=== PATIENT | female | born 1980 | race Caucasian/White ===

== ENCOUNTER → 2020-11-14 09:03 | Outpatient (BNVA) | payer OTHER, SELFPAY | PROVIDERS: Visit Provider Registered Nurse | DX: J06.9 Acute upper respiratory infection, unspecified (principal); Z20.822 Contact with and (suspected) exposure to COVID-19 | CPT/HCPCS: 87635 ==

== ENCOUNTER → 2020-11-18 13:24 | Outpatient (BNVA) | payer OTHER, SELFPAY | PROVIDERS: Visit Provider Registered Nurse | DX: J06.9 Acute upper respiratory infection, unspecified (principal); R69 Illness, unspecified; Z20.822 Contact with and (suspected) exposure to COVID-19 | CPT/HCPCS: 80053; 81000; 85025; 86141; 87400; 87635 ==

== ENCOUNTER → 2020-11-25 10:02 | Outpatient (BNVA) | payer SELFPAY | PROVIDERS: PCP Registered Nurse; Visit Provider Registered Nurse | DX: B34.9 Viral infection, unspecified (principal) | CPT/HCPCS: 86618; 86666; 86757 ==

== ENCOUNTER 2021-02-04 13:02 | Emergency (ER) | payer SELFPAY ==
[2021-02-04 13:41] VITALS: BP 94/63; PULSE 75; RESP 16; TEMP 37; O2SAT 99; BMI 19.2
[2021-02-04 14:07] VITALS: O2SAT 99
[2021-02-04 14:08] LABS: Basophils % 0.4 %; Hematocrit 44.2 % (37.0-47.0); Hemoglobin 15.2 g/dL (11.5-15.3); Lymphocytes # 0.7 10^3/uL (0.8-4.8); Lymphocytes % 31.2 %; Mean Corpuscular HGB Conc 34.4 g/dL (30.0-36.0); Mean Corpuscular Hemoglobin 30.3 pg (28.0-34.0); Mean Platelet Volume 11.2 fL (7.4-10.4); Monocytes # 0.2 10^3/uL (0.2-0.9); Monocytes % 8.9 %; Neutrophils # 1.41 10^3/uL (1.8-7.7); Neutrophils % 59.5 %; Nucleated Red Blood Cells % 0 %; Platelet Count 115 10^3/cmm (130-400); Red Blood Count 5.02 10^6/uL (4.1-5.3); Red Cell Distribution Width 11.6 % (12.1-15.1); White Blood Count 2.4 10^3/uL (4.0-10.0)
[2021-02-04 14:27] LABS: HCG, Serum Qual Negative (Negative)
[2021-02-04 14:41] LABS: Alanine Aminotransferase 38 U/L (0-33); Albumin Level 3.8 g/dL (3.5-5.2); Alkaline Phosphatase 59 IU/L (35-105); Anion Gap 15.6 (5-19); Aspartate Amino Transferase 29 U/L (0-32); Blood Urea Nitrogen 9 mg/dL (6-20); Calcium 8.3 mg/dL (8.5-10.5); Carbon Dioxide 26 mmol/L (22-29); Chloride 99 mmol/L (98-107); Globulin 2.7 g/dL (1.3-4.6); Glomerular Filtration Rate 93.2 mL/min (90-130); Glucose 72 mg/dL (65-115); Osmolality Calculated 279 mOsm/kg (285-295); Potassium 4.6 mmol/L (3.5-5.1); Sodium 136 mmol/L (136-145); Total Bilirubin 0.3 mg/dL (0.15-1.2); Total Protein 6.5 g/dL (6.6-8.7)
[2021-02-04 14:45] LABS: Lactic Sepsis W/Reflex 0.8 mmol/L (0.5-2.2)
[2021-02-04] MEDS: sodium chloride 0.9% 1,000 ML 999 ML IV (17:28)
[2021-02-04] MEDS: ondansetron 2 mg/ML SDV 2 mL 4 MG IVP (17:28)
--- NOTE | 2021-02-04 17:36 | W.ED.COVID ---
HPI - COVID General: Chief Complaint: COVID symptoms Stated Complaint: COVID+ VOMITING 6+ DAYS Time Seen by Provider: 02/04/21 17:10 Triage information: Has fever, cough or shortness of breath. Exposure to COVID + person last 14 days History of Present Illness: HPI Narrative: Patient is a 40-year-old female comes to the ED with nausea vomiting. Patient tested positive for COVID-19 at [facility] 2 days ago. Her symptoms started approximately 7 days ago. She had a cough, fever and nasal drainage and congestion. Her cough has been improving over the past couple days and is almost completely resolved. For the past 2-3 days she started developing abdominal pain located in the center of her abdomen along with more intense nausea and vomiting. She says she has not been able to keep any food or fluids down for the past 48 hours. COVID 19 common symptoms: positive fever(s), non-productive cough, nasal congestion, nausea, vomiting and diarrhea; negative chills, productive cough, dyspnea, fatigue, headache(s) or throat pain COVID 19 other sytmptoms: negative chest pain COVID Results: SARS-CoV-2 RNA (RT-PCR) Not detected (NOT DETECTED) 11/18/20 11:48 11/18/20 Review of Systems Const: Reports: fever(s); Denies: chills or fatigue Eyes: Denies: change in vision or eye discomfort ENMT: Reports: nasal discharge and nasal congestion; Denies: throat pain or odynophagia Card: Denies: chest pain, palpitations, edema, swelling of feet/ankles, dyspnea on exertion or orthopnea Resp: Reports: non-productive cough; Denies: dyspnea or productive cough GI: Reports: abdominal pain, nausea, vomiting and diarrhea; Denies: constipation or hematochezia : Denies: flank pain, dysuria or hematuria Musc: Denies: neck pain, back pain or extremity swelling Skin/Breast: Denies: rash or new lesions Neuro: Denies: headache(s), numbness in extremities or weakness in extremities Physical Exam Const: COMMON NORMALS: no acute distress, patient oriented x3 and alert GENERAL APPEARANCE: cooperative and comfortable HENMT: COMMON NORMALS: normocephalic HEAD & SCALP: normocephalic MOUTH: moist mucous membranes abnormal Details: parched THROAT: posterior oropharynx normal and uvula midline Eye: COMMON NORMALS: Equal, round and reactive pupils present PUPIL: Yes Equal, round and reactive pupils present Neck/C-Spine: COMMON NORMALS: supple GENERAL: Yes normal visual inspection Resp: COMMON NORMALS: normal respiratory effort, No retractions, No use of accessory muscles and clear to auscultation bilaterally AUSCULTATION: clear to auscultation bilaterally Cardio: COMMON NORMALS: regular rate, regular rhythm, S1 normal heart sound present, S2 normal heart sound present, No gallops present (Cardio), No clicks present (Cardio), No murmurs present (Cardio) and Peripheral pulses 2+ throughout RATE: regular rate RHYTHM: regular rhythm HEART SOUNDS: S1 normal heart sound present and S2 normal heart sound present PERIPHERAL PULSES: Peripheral pulses 2+ throughout GI: COMMON NORMALS: Normal to inspection, nondistended, normoactive bowel sounds present, Soft to palpation and no masses PALPATION: Yes Soft to palpation and Yes Tenderness to palpation present (GI) Details: other (Periumbilical and epigastric tenderness) : COMMON NORMALS: Yes no CVA tenderness BLADDER/KIDNEY EXAM: Yes no CVA tenderness Back/Pelvis: COMMON NORMALS: no CVA tenderness Neuro: COMMON NORMALS: patient oriented x3 and moves all extremities SENSORIUM/ORIENTATION: Yes alert Skin: GENERAL SKIN EXAM: dry skin Course Reevaluation(s): Reevaluation #1: After patient received IV fluids, Zofran and Reglan her nausea was controlled. She was able to drink some p.o. fluids and keep them down. Vital Signs: Vital signs: Vital Signs Temperature 98.6 F 02/04/21 13:41 Pulse Rate 76 02/04/21 21:45 Respiratory Rate 24 H 02/04/21 21:45 Blood Pressure 124/84 02/04/21 21:45 Pulse Oximetry 99 02/04/21 21:45 MDM - COVID MDM Narrative: Medical decision making narrative: Patient is a 40-year-old female comes to the ED with nausea, vomiting and some abdominal pain. Patient just tested positive for COVID-19 2 days ago at [facility]. She has been having symptoms for about a week. For the past 2 days she has been able to keep any food or fluids down. She states that her cough has pretty much resolved and she denies any shortness of breath. Exam shows a nontoxic-appearing patient in no acute distress or pain. Vitals are stable. Lungs are clear to consultation bilaterally patient does have some dry mucous membranes and some periumbilical abdominal tenderness. CBC, CMP and lactic were unremarkable. hCG negative. Chest x-ray showed some bilateral mild groundglass opacities. CT of abdomen pelvis showed no acute intra-abdominal finding. Some viral pneumonia signs seen in the base of the lungs. Patient was given IV fluids, Zofran, Reglan and her nausea was controlled. She was able to take p.o. fluids and keep them down. Patient was given IV Solu-Medrol while here in the ED. Patient diagnosed with COVID-19 and she was stable for discharge home. She was sent home with prescription for prednisone, azithromycin and Reglan. She was told to follow-up with her PCP in 5 to 7 days for reevaluation. Return to ED precautions given. Patient understood and agree with plan. Lab Data: Attestation: I reviewed the patient's lab results. Labs: Lab Results 02/04/21 02/04/21 02/04/21 13:43 13:43 13:43 WBC 2.4 10^3/uL L 10^ 3/uL (4.0-10.0) RBC 5.02 10^6/uL 10^6 /uL (4.1-5.3) Hgb 15.2 g/dL g/dL (11.5-15.3) Hct 44.2 % % (37.0-47.0) MCV 88.0 fl fl (81-99) MCH 30.3 pg pg (28.0-34.0) MCHC 34.4 g/dL g/dL (30.0-36.0) RDW 11.6 % L % (12.1-15.1) Plt Count 115 10^3/cmm L 10 ^3/cmm (130-400) MPV 11.2 fL H fL (7.4-10.4) Neut % (Auto) 59.5 % % Lymph % (Auto) 31.2 % % Walsh % (Auto) 8.9 % % Eos % (Auto) 0.0 % % Baso % (Auto) 0.4 % % Neut # (Auto) 1.41 10^3/uL L 10 ^3/uL (1.8-7.7) Lymph # (Auto) 0.7 10^3/uL L 10^ 3/uL (0.8-4.8) Walsh # (Auto) 0.2 10^3/uL 10^3/ uL (0.2-0.9) Eos # (Auto) 0.0 10^3/uL 10^3/ uL (0.0-0.8) Baso # (Auto) 0.0 10^3/uL 10^3/ uL (0.0-0.1) Nucleated RBC % (a uto) 0 % % Nucleated RBCs # 0.0 /100WBC /100W BC Sodium 136 mmol/L mmol/L (136-145) Potassium 4.6 mmol/L mmol/L (3.5-5.1) Chloride 99 mmol/L mmol/L (98-107) Carbon Dioxide 26 mmol/L mmol/L (22-29) Anion Gap 15.6 (5-19) BUN 9 mg/dL mg/dL (6-20) Creatinine 0.7 mg/dL mg/dL (0.5-0.9) GFR Calculation 93.2 mL/min mL/mi n (90-130) Glucose 72 mg/dL mg/dL (65-115) Calculated Osmolal ity 279 mOsm/kg L mOs m/kg (285-295) Lactic Acid Calcium 8.3 mg/dL L mg/dL (8.5-10.5) Total Bilirubin 0.3 mg/dL mg/dL (0.15-1.2) AST 29 U/L U/L (0-32) ALT 38 U/L H U/L (0-33) Alkaline Phosphata se 59 IU/L IU/L (35-105) Total Protein 6.5 g/dL L g/dL (6.6-8.7) Albumin 3.8 g/dL g/dL (3.5-5.2) Globulin 2.7 g/dL g/dL (1.3-4.6) HCG, Qual Negative (Negative) 02/04/21 13:43 WBC RBC Hgb Hct MCV MCH MCHC RDW Plt Count MPV Neut % (Auto) Lymph % (Auto) Walsh % (Auto) Eos % (Auto) Baso % (Auto) Neut # (Auto) Lymph # (Auto) Walsh # (Auto) Eos # (Auto) Baso # (Auto) Nucleated RBC % (a uto) Nucleated RBCs # Sodium Potassium Chloride Carbon Dioxide Anion Gap BUN Creatinine GFR Calculation Glucose Calculated Osmolal ity Lactic Acid 0.8 mmol/L mmol/L (0.5-2.2) Calcium Total Bilirubin AST ALT Alkaline Phosphata se Total Protein Albumin Globulin HCG, Qual Imaging Data: CT Abd/Pel: Attestation: I personally reviewed and interpreted this imaging study as follows: Radiologist's impression: [facility] [address] [place] [address]. [place] [address] CT Scan Report Signed Patient: Cecily Smith Unit #: [id number] : 1980 Age/Sex: 40 / F ADM Date: 02/04/21 Loc: ER Room/Bed: Attending Dr: Ordering Provider/Ordering MD: Jake Mcghee Date of Service: 02/04/21 Procedure(s): CT abdomen pelvis w con* [id number] Accession Number(s): [id number] Report Number: [id number] PROCEDURE INFORMATION: Exam: CT Abdomen And Pelvis With Contrast Exam date and time: 02/04/2021 5:58 PM Age: 40 years old Clinical indication: Nausea and vomiting and other: Diarrhea; Abdominal pain; Additional info: Abdominal pain-periumbilical, n/v/d TECHNIQUE: Imaging protocol: Computed tomography of the abdomen and pelvis with contrast. Radiation optimization: All CT scans at this facility use at least one of these dose optimization techniques: automated exposure control; mA and/or kV adjustment per patient size (includes targeted exams where dose is matched to clinical indication); or iterative reconstruction. Contrast material: OMNI 300; Contrast volume: 75 ml; Contrast route: INTRAVENOUS (IV); COMPARISON: CR XR chest 1V portable [id number] 02/04/2021 6:06 PM RADIATION DOSE METRICS: Total DLP (mGy-cm): 788.39 FINDINGS: Lungs: Bilateral peripheral ground-glass opacities with crazy paving, well-demarcated from uninvolved lung. No pleural effusions. Liver: Normal. No mass. Gallbladder and bile ducts: Normal. No calcified stones. No ductal dilation. Pancreas: Normal. No ductal dilation. Spleen: Normal. No splenomegaly. Adrenal glands: Normal. No mass. Kidneys and ureters: No hydroureteronephrosis or visualized urinary tract calculi. The kidneys enhance normally. There is a 5 mm right renal hypodensity which is too small to characterize but statistically likely represents a cyst. Stomach and bowel: Scattered diverticula of the left colon. No evidence of active diverticulitis. Appendix: No evidence of appendicitis. Intraperitoneal space: Small hypoattenuating free pelvic fluid is nonspecific but may be physiologic. No organized fluid collection. No free air. Vasculature: Unremarkable. No abdominal aortic aneurysm. Lymph nodes: Unremarkable. No enlarged lymph nodes. Urinary bladder: Bladder partially filled. No stones. Reproductive: Unremarkable as visualized. Bones/joints: No acute or aggressive osseous lesion. Soft tissues: Unremarkable. CT/CT abdomen pelvis w con* [id number] IMPRESSION: 1. Bibasilar pulmonary ground-glass opacities with crazy paving. Commonly reported imaging features of COVID-19 pneumonia are present. Other processes such as influenza pneumonia and organizing pneumonia, as can be seen with drug toxicity and connective tissue disease, can cause a similar imaging pattern. (Reference: Steve) 2. Small free pelvic fluid is nonspecific but presumably physiologic. No organized fluid collection. 3. Diverticulosis without evidence of active diverticulitis. COMMENTS: Consistent with the [place] [employer]'s Incidental Findings Committee white paper (J Am Elaina Radiol 2018): Any incidental renal lesion less than 1 cm or classified as too small to characterize, or any incidental cystic renal lesion characterized as simple-appearing, is likely benign. No follow-up imaging is recommended for these lesions per consensus recommendations based on imaging criteria. REFERENCES: Steve Lozada et al., Radiological Society of [place] Expert Consensus Statement on Reporting Chest CT Findings Related to COVID-19. Endorsed by the Society of Thoracic Radiology, the [place] [employer], and RSNA. Published July 18, 2019. Radiation Dose CTDIVOL = (mGy): DLP = 788.39 (mGy-cm) Dictated By: Kris Rubalcava MD Signed By: Kris Rubalcava MD Signed Date/Time: 02/04/211930 DD/ 57 CXR: Attestation: I personally reviewed and interpreted this imaging study as follows: Radiologist's impression: [facility] [address] [address] XRay Report Signed Patient: Cecily Smith Unit #: [id number] : 1980 Age/Sex: 40 / F ADM Date: 02/04/21 Loc: ER Room/Bed: Attending Dr: Ordering Provider/Ordering MD: Jake Mcghee Date of Service: 02/04/21 Procedure(s): XR chest 1V portable [id number] Accession Number(s): [id number] Report Number: [id number] PROCEDURE INFORMATION: Exam: XR Chest Exam date and time: 02/04/2021 5:58 PM Age: 40 years old Clinical indication: Cough and fever and shortness of breath; Additional info: Covid-19 positive, cough, SOB, and fever TECHNIQUE: Imaging protocol: XR of the chest. Views: 1 view. COMPARISON: No relevant prior studies available. FINDINGS: Lungs: The lungs are symmetrically expanded. Subtle bibasilar ground-glass opacities. No lobar consolidation. Pleural spaces: Unremarkable. No pleural effusion. No pneumothorax. Heart/Mediastinum: Unremarkable. No cardiomegaly. Bones/joints: Unremarkable. XR/XR chest 1V portable [id number] IMPRESSION: Subtle bibasilar ground-glass opacities consistent with mild infectious/inflammatory airways process and presumably related to COVID-19 pneumonia given history. No lobar consolidation. Radiation Dose CTDIVOL = (mGy): DLP = (mGy-cm) Dictated By: Kris Rubalcava MD Signed By: Kris Rubalcava MD Signed Date/Time: 02/04/211931 DD/ 57 COVID Results: SARS-CoV-2 RNA (RT-PCR) Not detected (NOT DETECTED) 11/18/20 11:48 11/18/20 Discharge Plan Discharge Patient Disposition: Home Clinical Impression: COVID-19 Condition: Stable Prescriptions: New Reglan 10 mg tablet 10 mg PO Q6H PRN (Reason: nausea and vomiting) Qty: 20 RF: 0 azithromycin 250 mg tablet See Rx Instructions .ROUTE .COMPLEX Qty: 6 RF: 0 prednisone 20 mg tablet 20 mg PO BID 7 Days Qty: 14 RF: 0 No Action doxycycline hyclate 100 mg tablet 100 mg PO BID 10 Days Qty: 20 RF: 0 Discharge Orders: Discharge ED (Routine); Ordered 02/04/21 Ordered By: Jake Mcghee Referrals: Adelaida Santos FNP [Primary Care Provider] - Discharge Diet: Regular Discharge Activity: Increase activity as tolerated Patient Instructions: Viral Syndrome (ED) Activity Restrictions/Additional Instructions: Follow-up with medical provider as directed in 5 to 7 days for reevaluation. Take medications as prescribed. Make sure to drink plenty fluids and stay hydrated. Take [id number] vitamin C and zinc as well help immune system. return to the ER or your medical provider if condition worsens. Please read and understand discharge instructions. Thank you for choosing [facility] for your healthcare needs today. Please realize this is an emergency room and that we are providing you with a medical screening exam and this may not be complete and all inclusive of all the testing and or work up that you may need to determine your ailment or severity of your illness. It is very important that you follow up as instructed or that you return to the Emergency Department should you have concerns or if your condition changes or worsens in any way. Coding Level of Care Code ED Tonnage Compilation Clerk for Rainer Fwanival Exam Comprehensive
--- NOTE | 2021-02-04 17:58 | CTR_ITS ---
PROCEDURE INFORMATION: Exam: CT Abdomen And Pelvis With Contrast Exam date and time: 02/04/2021 5:58 PM Age: 40 years old Clinical indication: Nausea and vomiting and other: Diarrhea; Abdominal pain; Additional info: Abdominal pain-periumbilical, n/v/d TECHNIQUE: Imaging protocol: Computed tomography of the abdomen and pelvis with contrast. Radiation optimization: All CT scans at this facility use at least one of these dose optimization techniques: automated exposure control; mA and/or kV adjustment per patient size (includes targeted exams where dose is matched to clinical indication); or iterative reconstruction. Contrast material: OMNI 300; Contrast volume: 75 ml; Contrast route: INTRAVENOUS (IV); COMPARISON: CR XR chest 1V portable [id number] 02/04/2021 6:06 PM RADIATION DOSE METRICS: Total DLP (mGy-cm): 788.39 FINDINGS: Lungs: Bilateral peripheral ground-glass opacities with crazy paving, well-demarcated from uninvolved lung. No pleural effusions. Liver: Normal. No mass. Gallbladder and bile ducts: Normal. No calcified stones. No ductal dilation. Pancreas: Normal. No ductal dilation. Spleen: Normal. No splenomegaly. Adrenal glands: Normal. No mass. Kidneys and ureters: No hydroureteronephrosis or visualized urinary tract calculi. The kidneys enhance normally. There is a 5 mm right renal hypodensity which is too small to characterize but statistically likely represents a cyst. Stomach and bowel: Scattered diverticula of the left colon. No evidence of active diverticulitis. Appendix: No evidence of appendicitis. Intraperitoneal space: Small hypoattenuating free pelvic fluid is nonspecific but may be physiologic. No organized fluid collection. No free air. Vasculature: Unremarkable. No abdominal aortic aneurysm. Lymph nodes: Unremarkable. No enlarged lymph nodes. Urinary bladder: Bladder partially filled. No stones. Reproductive: Unremarkable as visualized. Bones/joints: No acute or aggressive osseous lesion. Soft tissues: Unremarkable. CT/CT abdomen pelvis w con* [id number] IMPRESSION: 1. Bibasilar pulmonary ground-glass opacities with crazy paving. Commonly reported imaging features of COVID-19 pneumonia are present. Other processes such as influenza pneumonia and organizing pneumonia, as can be seen with drug toxicity and connective tissue disease, can cause a similar imaging pattern. (Reference: Steve) 2. Small free pelvic fluid is nonspecific but presumably physiologic. No organized fluid collection. 3. Diverticulosis without evidence of active diverticulitis. COMMENTS: Consistent with the [place] [employer]'s Incidental Findings Committee white paper (J Am Elaina Radiol 2018): Any incidental renal lesion less than 1 cm or classified as too small to characterize, or any incidental cystic renal lesion characterized as simple-appearing, is likely benign. No follow-up imaging is recommended for these lesions per consensus recommendations based on imaging criteria. REFERENCES: Steve Lozada et al., Radiological Society of [place] Expert Consensus Statement on Reporting Chest CT Findings Related to COVID-19. Endorsed by the Society of Thoracic Radiology, the [place] [employer], and RSNA. Published July 18, 2019. Radiation Dose CTDIVOL = (mGy): DLP = 788.39 (mGy-cm)
--- NOTE | 2021-02-04 17:58 | XRR_ITS ---
PROCEDURE INFORMATION: Exam: XR Chest Exam date and time: 02/04/2021 5:58 PM Age: 40 years old Clinical indication: Cough and fever and shortness of breath; Additional info: Covid-19 positive, cough, SOB, and fever TECHNIQUE: Imaging protocol: XR of the chest. Views: 1 view. COMPARISON: No relevant prior studies available. FINDINGS: Lungs: The lungs are symmetrically expanded. Subtle bibasilar ground-glass opacities. No lobar consolidation. Pleural spaces: Unremarkable. No pleural effusion. No pneumothorax. Heart/Mediastinum: Unremarkable. No cardiomegaly. Bones/joints: Unremarkable. XR/XR chest 1V portable [id number] IMPRESSION: Subtle bibasilar ground-glass opacities consistent with mild infectious/inflammatory airways process and presumably related to COVID-19 pneumonia given history. No lobar consolidation. Radiation Dose CTDIVOL = (mGy): DLP = (mGy-cm)
[2021-02-04] MEDS: iohexol 300 mg/mL 100 mL Btl IV (18:14)
[2021-02-04] MEDS: metoclopramide 5 mg/mL SDV 2 mL 10 MG IVP (20:15)
[2021-02-04 20:20] VITALS: RESP 20
[2021-02-04] MEDS: morphine 4 mg/mL SDV 1 mL 2 MG IVP (20:20)
[2021-02-04 21:45] VITALS: BP 124/84; PULSE 76; RESP 24; O2SAT 99
== END 2021-02-04 21:40 | disposition home or self-care (01) ==
PROVIDERS: Physician Assistant; Emergency Provider Physician Assistant; PCP Registered Nurse
DX: U07.1 COVID-19 (principal)
CPT/HCPCS: 71045; 74177; 80053; 83605; 84703; 85025; 96361; 96374; 96375; 99283; J2270; J2405; J2765; J2930; J7030; Q9967

== ENCOUNTER → 2022-03-12 11:39 | Outpatient (BNVA) | payer SELFPAY | PROVIDERS: PCP Registered Nurse; Visit Provider Registered Nurse | DX: R00.0 Tachycardia, unspecified (principal); R55 Syncope and collapse | CPT/HCPCS: 80053; 82306; 82607; 83036; 84443; 85025 ==

== ENCOUNTER → 2022-03-22 10:02 | Outpatient (BNVA) | payer SELFPAY | PROVIDERS: PCP Registered Nurse; Visit Provider Registered Nurse | DX: J11.1 Influenza due to unidentified influenza virus with other respiratory manifestations (principal); Z11.52 Encounter for screening for COVID-19; R68.89 Other general symptoms and signs | CPT/HCPCS: 87400; 87426 ==

== ENCOUNTER 2023-08-29 12:17 | Emergency (ER) | payer SELFPAY ==
[2023-08-29 12:22] VITALS: BP 131/75; PULSE 115; RESP 18; TEMP 36.9; O2SAT 100; BMI 17.6
--- NOTE | 2023-08-29 13:21 | W.ED.ABDPA2 ---
HPI - Abdominal Pain General: Chief Complaint: Abdominal Pain Stated Complaint: states she is C Diff + 5 days ago, weakness Time Seen by Provider: 08/29/23 13:15 Source: patient Mode of arrival: ambulatory Limitations: no limitations History of Present Illness: 42-year-old female states she has not felt well since roughly 10 days ago she been having nausea diarrhea generalized weakness she was seen at the ER on Tuesday was seen at [facility] again on Tuesday and was diagnosed with C. difficile. She was started on Flagyl and Phenergan but states she is continue to been nauseous with diarrhea and just feeling extremely weak she denies any fever she had abdominal cramping denies any severe pain. Associated Symptoms: Reports diarrhea, nausea and vomiting; Denies chills, dysuria and fever(s) Review of Systems Const: Reports: fatigue and malaise; Denies: fever(s), chills, body aches or change in appetite ENMT: Denies: throat pain or dental pain Card: Denies: chest pain Resp: Denies: dyspnea GI: Reports: abdominal pain, nausea, vomiting and diarrhea : Denies: dysuria Musc: Denies: neck pain or back pain Skin/Breast: Denies: rash Neuro: Denies: headache(s) PFSH ED PFSH: Family History Other No pertinent family history Social History Smoking and tobacco/nicotine status: current every day tobacco/nicotine user e-cigarettes E-Cigarette Details: vaporizer device Alcohol intake: never Substance/Drug Use: never Adopted: No Caregiver/support person: No Lives independently: No Household members: children service: Yes status: Medically Discharged/Retired branch: [employer] Current occupational status: employed Sexually active: Yes Do you think of yourself as: Straight/Heterosexual Current gender identity: Female Physical Exam Const: COMMON NORMALS: patient oriented x3 GENERAL APPEARANCE: ill appearing HENMT: COMMON NORMALS: normocephalic and atraumatic HEAD & SCALP: normocephalic and atraumatic Eye: COMMON NORMALS: conjunctivae normal CONJUNCTIVA: Yes conjunctivae normal Neck/C-Spine: COMMON NORMALS: full ROM and supple Chest: COMMONS NORMALS: normal inspection of the chest and normal palpation of entire chest wall Resp: COMMON NORMALS: normal respiratory effort, No retractions, No use of accessory muscles and clear to auscultation bilaterally AUSCULTATION: clear to auscultation bilaterally Cardio: COMMON NORMALS: regular rhythm and No murmurs present (Cardio) RATE: tachycardic RHYTHM: regular rhythm GI: COMMON NORMALS: Normal to inspection, nondistended, normoactive bowel sounds present, Soft to palpation, non-tender and no masses PALPATION: Yes Soft to palpation Extremity: COMMON NORMALS: normal to inspection and full ROM Neuro: COMMON NORMALS: patient oriented x3, moves all extremities and no focal motor deficits Psych: COMMON NORMALS: mental status grossly normal, Normal thought process present and cooperative THOUGHT PROCESS: Normal thought process present Skin: COMMON NORMALS: no rashes or lesions noted and no wounds GENERAL SKIN EXAM: no rashes or lesions noted Course Vital Signs: Vital signs: Vital Signs Temperature 98.5 F 08/29/23 12:22 Pulse Rate 115 H 08/29/23 12:22 Respiratory Rate 18 08/29/23 12:22 Blood Pressure 131/75 08/29/23 12:22 Pulse Oximetry 100 08/29/23 12:22 Oxygen Delivery Me thod Room Air 08/29/23 12:22 MDM - Abdominal Pain Medical Decision Making Patient presents here with abdominal cramping and diarrhea she is on Flagyl for C. difficile her blood work here is normal white count electrolytes normal she feels improved after IV fluids will refill her Phenergan she is to continue her Flagyl follow-up with her PCP return if worsening she understands agrees with plan abdominal exam is benign no signs of acute surgical abdomen Medical Records I reviewed the patient's medical records. Lab Data I reviewed the patient's lab results. 08/29/23 13:20 08/29/23 13:20 Labs/Radiology: Laboratory Results WBC 9.25 10^3/uL (3.29-11.43) 08/29/23 13:20 RBC 5.99 10^6/uL (3.85-5.65) H 08/29/23 13:20 Hgb 17.80 g/dL (11.27-16.99) H 08/29/23 13:20 Hct 52.9 % (36-47) H 08/29/23 13:20 MCV 88.3 fl (85-98) 08/29/23 13:20 MCH 29.7 pg (27-33) 08/29/23 13:20 MCHC 33.6 g/dL (30-55) 08/29/23 13:20 RDW 12.5 % (12.1-15.1) 08/29/23 13:20 Plt Count 298 10^3/cmm (157-399) 08/29/23 13:20 MPV 10.6 fL (7.4-10.4) H 08/29/23 13:20 Neut % (Auto) 84.6 % 08/29/23 13:20 Lymph % (Auto) 10.6 % 08/29/23 13:20 [place] % (Auto) 4.2 % 08/29/23 13:20 Eos % (Auto) 0.0 % 08/29/23 13:20 Baso % (Auto) 0.4 % 08/29/23 13:20 Neut # (Auto) 7.82 10^3/uL (1.8-7.7) H 08/29/23 13:20 Lymph # (Auto) 1.0 10^3/uL (0.8-4.8) 08/29/23 13:20 [place] # (Auto) 0.4 10^3/uL (0.2-0.9) 08/29/23 13:20 Eos # (Auto) 0.0 10^3/uL (0.0-0.8) 08/29/23 13:20 Baso # (Auto) 0.0 10^3/uL (0.0-0.1) 08/29/23 13:20 Nucleated RBC % (auto) 0 % 08/29/23 13:20 Nucleated RBCs # 0.0 /100WBC 08/29/23 13:20 Sodium 139 mmol/L (136-145) 08/29/23 13:20 Potassium 4.2 mmol/L (3.5-5.1) 08/29/23 13:20 Chloride 103 mmol/L (98-107) 08/29/23 13:20 Carbon Dioxide 24 mmol/L (22-29) 08/29/23 13:20 Anion Gap 16.2 (5-19) 08/29/23 13:20 BUN 6 mg/dL (6-20) 08/29/23 13:20 Creatinine 0.7 mg/dL (0.5-0.9) 08/29/23 13:20 GFR Calculation 92.2 mL/min (90-130) 08/29/23 13:20 Glucose 121 mg/dL (65-115) H 08/29/23 13:20 Calculated Osmolality 287 mOsm/kg (285-295) 08/29/23 13:20 Calcium 9.7 mg/dL (8.5-10.5) 08/29/23 13:20 Total Bilirubin 0.5 mg/dL (0.15-1.2) 08/29/23 13:20 AST 17 U/L (0-32) 08/29/23 13:20 ALT 11 U/L (0-33) 08/29/23 13:20 Alkaline Phosphatase 65 U/L (35-105) 08/29/23 13:20 Total Protein 8.2 g/dL (6.6-8.7) 08/29/23 13:20 Albumin 4.8 g/dL (3.5-5.2) 08/29/23 13:20 Globulin 3.4 g/dL (1.3-4.6) 08/29/23 13:20 C. difficile (PCR) Negative (Negative) 08/29/23 14:25 No radiology studies performed this visit Discharge Plan Discharge Patient Disposition: Home Clinical Impression: Diarrhea, Abdominal pain Condition: Stable Prescriptions: New promethazine 25 mg tablet 25 mg PO Q6H PRN (Reason: nausea and vomiting) Qty: 20 0RF No Action Flagyl 500 mg Tablet 500 mg PO TID promethazine 25 mg Tablet 25 mg PO Q6H PRN (Reason: Nausea And Vomiting) Adult Multivitamin Gummies 200 mcg Tablet,Chewable 2 tab PO DAILY Discharge Orders: Discharge ED (Routine); Ordered 08/29/23 Ordered By: Robyn Shelton Referrals: Adelaida Santos FNP [Primary Care Provider] - 1-3 days Discharge Diet: Advance as tolerated Discharge Activity: Resume usual activity Patient Instructions: Diarrhea - Adult, Abdominal Pain (ED) Coding Level of Care Code ED Conservation Educator for Rainer Meraz
[2023-08-29 13:26] LABS: Basophils % 0.4 %; Hematocrit 52.9 % (36-47); Lymphocytes % 10.6 %; Mean Corpuscular HGB Conc 33.6 g/dL (30-55); Mean Corpuscular Hemoglobin 29.7 pg (27-33); Mean Corpuscular Volume 88.3 fl (85-98); Mean Platelet Volume 10.6 fL (7.4-10.4); Monocytes # 0.4 10^3/uL (0.2-0.9); Monocytes % 4.2 %; Neutrophils # 7.82 10^3/uL (1.8-7.7); Neutrophils % 84.6 %; Nucleated Red Blood Cells % 0 %; Platelet Count 298 10^3/cmm (157-399); Red Blood Count 5.99 10^6/uL (3.85-5.65); Red Cell Distribution Width 12.5 % (12.1-15.1); White Blood Count 9.25 10^3/uL (3.29-11.43)
[2023-08-29 13:44] LABS: Alanine Aminotransferase 11 U/L (0-33); Albumin Level 4.8 g/dL (3.5-5.2); Alkaline Phosphatase 65 U/L (35-105); Anion Gap 16.2 (5-19); Aspartate Amino Transferase 17 U/L (0-32); Blood Urea Nitrogen 6 mg/dL (6-20); Calcium 9.7 mg/dL (8.5-10.5); Carbon Dioxide 24 mmol/L (22-29); Chloride 103 mmol/L (98-107); Creatinine Clr Calc Pharmacy 79.5137; Globulin 3.4 g/dL (1.3-4.6); Glomerular Filtration Rate 92.2 mL/min (90-130); Glucose 121 mg/dL (65-115); Osmolality Calculated 287 mOsm/kg (285-295); Potassium 4.2 mmol/L (3.5-5.1); Sodium 139 mmol/L (136-145); Total Bilirubin 0.5 mg/dL (0.15-1.2); Total Protein 8.2 g/dL (6.6-8.7)
--- NOTE | 2023-08-29 14:07 | PC.PHAR ---
pt states she takes care of her own medications-pt states not taken metoprolol tartrate 25mg take 12.5mg daily in 8 months-pt states only taking the medications entered
[2023-08-29] MEDS: sodium chloride 0.9% 1,000 ML 999 ML IV (15:26)
[2023-08-29] MEDS: ondansetron 2 mg/ML SDV 2 mL 4 MG IVP (15:27)
[2023-08-29 15:38] LABS: C.Diff PCR (Lab) NEGATIVE (Negative)
== END 2023-08-29 16:09 | disposition home or self-care (01) ==
PROVIDERS: Emergency Provider Emergency Medicine; PCP Registered Nurse
DX: R19.7 Diarrhea, unspecified (principal); R10.9 Unspecified abdominal pain
CPT/HCPCS: 36415; 80053; 82274; 83630; 85025; 87045; 87177; 87209; 87427; 87449; 87493; 96374; 99284; J2405; J7030

== ENCOUNTER → 2023-09-14 11:06 | Outpatient (BNVA) | payer SELFPAY | PROVIDERS: PCP Registered Nurse; Visit Provider Registered Nurse | DX: R53.83 Other fatigue (principal) | CPT/HCPCS: 80053; 85025 ==

== ENCOUNTER → 2024-06-25 09:17 | Outpatient (BNVA) | payer SELFPAY | PROVIDERS: PCP Registered Nurse; Visit Provider Obstetrics & Gynecology | DX: Z01.419 Encounter for gynecological examination (general) (routine) without abnormal findings (principal); N92.6 Irregular menstruation, unspecified | CPT/HCPCS: 80053; 84443; 85025; 87624 ==

== ENCOUNTER → 2024-08-27 10:25 | Outpatient (BNVA) | payer SELFPAY | PROVIDERS: PCP Registered Nurse; Visit Provider Obstetrics & Gynecology | DX: N93.9 Abnormal uterine and vaginal bleeding, unspecified (principal) | CPT/HCPCS: 76830 ==